=== PATIENT | female | born 1945 | race Hispanic/Latino ===

== ENCOUNTER → 2022-06-26 | Outpatient (CLI) | payer MEDICARE ==
[~2022-06-26] MED LIST: ATENOLOL-CHLOR1 EAC1 PO; DIOVAN160 MG PO; LEVAQUIN500 MG PO; METFORMIN HCL500 MG PO
== END ==
LOC: MRI 07:04
PROVIDERS: ATTEND Internal Medicine
DX: G31.84 Mild cognitive impairment of uncertain or unknown etiology (principal)
CPT/HCPCS: 70551

== ENCOUNTER → 2023-11-19 | Outpatient (REF) | payer MEDICARE | LOC: MAMMO 09:07 | PROVIDERS: ATTEND Internal Medicine | DX: Z12.31 Encounter for screening mammogram for malignant neoplasm of breast (principal) | CPT/HCPCS: 77067 ==

== ENCOUNTER → 2024-09-08 | Outpatient (REF) | payer MEDICARE | LOC: DX 09:08 | PROVIDERS: ATTEND Internal Medicine | DX: M85.88 Other specified disorders of bone density and structure, other site (principal) | CPT/HCPCS: 77080 ==

== ENCOUNTER → 2024-11-29 | Outpatient (REF) | payer MEDICARE | LOC: MAMMO 14:05 | PROVIDERS: ATTEND Internal Medicine | DX: Z12.31 Encounter for screening mammogram for malignant neoplasm of breast (principal) | CPT/HCPCS: 77067 ==